=== PATIENT | female | born 1995 | race Caucasian/White ===

== ENCOUNTER 2017-04-24 17:25 | Emergency (ER) | payer MEDICAID ==
[~2017-04-24] VITALS: Ht 172.7 cm; Wt 73.0 kg
[2017-04-24 17:39] VITALS: Ht 172.7 cm; Wt 73.0 kg
[2017-04-24 19:41] VITALS: TEMP 99.2
[2017-04-24 20:58] VITALS: BP 122/63; PULSE 71; RESP 17
[2017-04-24] MEDS ORDERED: LORAZEPAM 0.5 MG TAB PO ONE (21:00)
[2017-04-24 21:36] LABS: ADD UMIC YES; UR ASCORBIC ACID NEGATIVE (NEGATIVE); UR BILIRUBIN (Dip) NEGATIVE (NEGATIVE); UR BLOOD (Dip) NEGATIVE (NEGATIVE); UR CLARITY SLIGHTLY CLOUDY (CLEAR); UR COLOR YELLOW (YELLOW); UR GLUCOSE (Dip) NEGATIVE (NEGATIVE); UR KETONES (Dip) NEGATIVE (NEGATIVE); UR LEUKOCYTE ESTERASE (Dip) 2+ Leu/ul (NEGATIVE); UR MUCUS FEW /HPF (NONE SEEN); UR NITRITE (Dip) NEGATIVE (NEGATIVE); UR RBC 2 /HPF (0-5); UR SPECIFIC GRAVITY (Dip) 1.011 (1.003-1.030); UR SQUAMOUS EPITHELIAL CELL FEW /HPF (FEW); UR TOTAL PROTEIN (Dip) NEGATIVE (NEGATIVE); UR UROBILINOGEN (Dip) NEGATIVE (NEGATIVE)
--- NOTE | 2017-04-24 22:06 | ERD ---
ER Documentation Chief Complaint Date/Time DATE: 04/24/17 TIME: 22:02 Chief Complaint CRYING AND UNCONTROLLED PANICK DUE TO EDIBLE DRUG CONSUMPTION HPI This is a 22-year-old female with no past medical history that presents to the emergency department after she started to feel very anxious with palpitations 4 hours prior to arrival. The patient indicated a friend had given her a brownie with marijuana. She indicates she has never utilized marijuana in the past. She became very anxious and asked her mother to bring her to the emergency department to be further evaluated. She denies any suicidal homicidal thoughts ideations. She denied any auditory tactile or visual hallucinations. She denied any nausea and no hemoptysis hematemesis or melanotic stools. She stated she started to cry and was unable to stop. ROS All systems reviewed and are negative except as per history of present illness. Allergies Allergies: Coded Allergies: No Known Allergy (Unverified , 04/24/17) PMhx/Soc Medical and Surgical Hx: pt denies Medical Hx, pt denies Surgical Hx Hx Substance Use: Yes (EDIBLE) Smoking Status: Never smoker Physical Exam Vitals Vital Signs Date Time Temp Pulse Resp B/P Pulse Ox O2 Delivery O2 Flow Rate FiO2 04/24/17 20:58 71 17 122/63 100 Room Air 04/24/17 19:41 99.2 77 16 119/56 99 Room Air 04/24/17 17:39 99.4 137 24 137/80 98 Physical Exam Constitutional:Well-developed. Well-nourished. She was sitting comfortably in a chair but appeared very anxious and nervous HEENT:Normocephalic. Atraumatic.Pupils were equal round reactive to light. Moist mucous membranes.No tonsillar exudates. Neck: No nuchal rigidity. No lymphadenopathy. No posterior cervical spine tenderness or step-offs. Respiratory: Not using accessory muscles of respiration.Lungs were clear to auscultation bilaterally. No rhonchi. No rales. No wheezing. Cardiovascular: Regular rate regular rhythm.No murmurs. No rubs were appreciated.S1, S2 normal. Distal pulses are palpable 2+ bilaterally. GI: Abdomen was soft. Nontender. Non Distended. No pulsatile abdominal masses or bruits. No rebound. No guarding. Bowel sounds were present and normal. Muscle skeletal: Full range of motion of both the upper and lower extremities bilaterally.Normal muscle tone.No assymetrical calf tenderness or swelling. Skin: No petechia, no purpura. No lesions on the palms or the soles of the feet. No maculopapular rash. NEURO: Patient was alert, awake, orientated x3.No facial droop. Gait observed and normal with no ataxia.Speech had regular rate and rhythm. No focal neurological deficits. Patient denied any suicidal homicidal thoughts or ideations. Results 24 hrs Laboratory Tests Test 04/24/17 20:45 Urine Color YELLOW Urine Clarity SLIGHTLY CLOUDY Urine pH 5.0 Urine Specific [place] 1.011 Urine Ketones NEGATIVEmg/dL Urine Nitrite NEGATIVEmg/dL Urine Bilirubin NEGATIVEmg/dL Urine Urobilinogen NEGATIVEmg/dL Urine Leukocyte Esterase 2+Reji/ul Urine Microscopic RBC 2/HPF Urine Microscopic WBC 3/HPF Urine Squamous Epithelial Cells FEW/HPF Urine Mucus FEW/HPF Urine Hemoglobin NEGATIVEmg/dL Urine Glucose NEGATIVEmg/dL Urine Total Protein NEGATIVEmg/dl Current Medications Medications (Trade) Dose Ordered Sig/Elvira Route PRN Reason Start Time Stop Time Status Last Admin Dose Admin Lorazepam (Ativan) 0.5 mg ONCE ONCE PO 04/24/17 21:00 04/24/17 21:01 DC 04/24/17 20:55 Procedures/MDM This is a very polite female who presented to the emergency department after she experienced an adverse medication to marijuana for first time use. The patient did receive 0.5 mg of Ativan p.o. to help with the anxiety. The patient had no other physical exam findings to suggest co-ingestion or severe toxicodrome. The patient states she felt comfortable to be discharged home The patient was discharged home in fair condition. They were instructed to return to the emergency department at any time if there was any worsening of their condition. The patient stated they would follow up with their PCP in the next 24-48 hours to initiate a suitable medication regimen under the care of their PCP as well as to allow their PCP to monitor any drug reactions. The patient was discharged home with prescriptions after they gave informed consent to the new medication. They were also fully informed by myself on the adverse effects and adverse drug interactions in order to provide adequate safeguards to prevent possible adverse reactions to medications. Departure Diagnosis: Primary Impression: Adverse effect of cannabis Condition: Fair Patient Instructions: Your Body's Response to Anxiety, Anxiety Reaction PITER DOMINGO Apr 24, 2017 22:05
[2017-04-24 22:16] LABS: BARBITURATES Negative (NEGATIVE)
[2017-04-24 22:17] LABS: BENZODIAZEPINES Negative (NEGATIVE); CANNABINOIDS Positive (NEGATIVE); COCAINE Negative (NEGATIVE); OPIATES Negative (NEGATIVE)
== END 2017-04-24 21:00 | disposition home or self-care (01) ==
LOC: E/R 17:25
DX: R00.2 Palpitations (principal); T40.7X5A Adverse effect of cannabis (derivatives), initial encounter
CPT/HCPCS: 80307; 81001; Z7502; Z7610; 99283